=== PATIENT | female | born 1945 | race Caucasian/White ===

== ENCOUNTER → 2017-01-14 | Outpatient (REF) | payer OTHER ==
[~2017-01-14] MED LIST: ATOR40TA PO; BRIM2OPD OU; COMB0.2S OU; DORZ2OPD OU; FOSA70TA PO; LATA5OPD OD; LEVO75TA4 PO; LEVOTAB10 PO; OMEP20CA3 PO; PARO10TA84 PO; VITA400C2 PO; VITA400C29 PO
== END ==
LOC: M LAB REF 15:02
PROVIDERS: ATTEND Internal Medicine
DX: R94.31 Abnormal electrocardiogram [ECG] [EKG] (principal)

== ENCOUNTER → 2017-01-22 | Day surgery (SDC) | payer OTHER ==
[~2017-01-22] VITALS: Ht 152.4 cm; Wt 67.1 kg
[~2017-01-22] MED LIST changes: +ACETAMINOPHEN 325 MG TAB PO PRN; +AcetaZOLAMIDE 500 MG ER CAP PO ONE; +BETAMETHASONE SOLUSPAN 6MG/ML INJ 5ML (J0702) As Ordered ONE; +BSS with VANC/TOB/EPI for EYE CASES IR ONE; +CYCLOPENTOLATE 2% OPHTH SOLN 2ML BTL As Ordered ONE; +CYCLOPENTOLATE 2% OPHTH SOLN 2ML BTL OS ONE; +D5W/0.2% SODIUM CHLORIDE 1,000 ML ONE; +D5W/0.2% SODIUM CHLORIDE 250 ML IV ONE; +KETOROLAC 0.5% OPHTH SOLN OS ONE; +LIDOCAINE 2% W/EPIN INJ 20ML **PRES FREE As Ordered ONE; +LIDOCAINE 4% INJ 5 ML AMP OU ONE; +MIDAZOLAM INJ 2 MG/2 ML VIAL (J2250) As Ordered ONE; +OFLOXACIN 0.3 % (OCUFLOX) OPTH SOL 5ML As Ordered ONE; +OFLOXACIN 0.3 % (OCUFLOX) OPTH SOL 5ML OS ONE; +PHENYLEPHRINE 2.5% OPHTH SOL 2ML As Ordered ONE; +PHENYLEPHRINE 2.5% OPHTH SOL 2ML OS ONE; +POVIDONE-IODINE 5% OPHTH PREP SOL 30ML As Ordered ONE; +PROPARACAINE 0.5% OPHTH SOL 15ML OS PRN; +TOBRADEX OPHTH OINT 3.5 GM As Ordered ONE; +TOBRAMYCIN INJ 80 MG/2 ML VIAL (J3260) As Ordered ONE; +TRIMETHOBENZAMIDE 300 MG CAP PO PRN; +TROPICAMIDE 1% OPHTH SOLN 2ML As Ordered ONE; +TROPICAMIDE 1% OPHTH SOLN 2ML OS ONE; +fentaNYL 100 MCG/2 ML INJECTION (J3010) As Ordered ONE; +mitoMYcin (FOR OPHTHALMIC USE) 0.3MG/1ML SYRINGE IN NaCl (J7999) As Ordered ONE
[2017-01-22 09:10] VITALS: BP 143/79
--- NOTE | 2017-01-22 10:42 | RO ---
DATE OF PROCEDURE: 01/22/2017 PREOPERATIVE DIAGNOSIS: Failed Ex-Press shunt left eye. POSTOPERATIVE DIAGNOSIS: Failed Ex-Press shunt left eye. PROCEDURE: Revision of the Ex-Press shunt with mitomycin C and lysis of the adhesions left eye. SURGEON: Danielle Cuellar MD ANALYTICAL TECH: None. ANESTHESIA: COMPLICATIONS: None. DESCRIPTION OF PROCEDURE: Procedure in detail: The patient was brought to the operating room, laid in supine position. The left eye was prepped and draped in a sterile fashion for ophthalmic surgery, following which a lid speculum was placed. 8-0 Vicryl suture was then placed in the superior limbal area, and the eye was rotated downwards. Subconjunctival injection of 1% lidocaine with 1:100,000 epinephrine was then given in the superior subconjunctival space. A limbal-based conjunctival peritomy was then done. Dissection was carried out all the way to the limbus. There were extensive adhesions noted, which were then lysed with the help of 0.12 forceps and blunt scissors. The previous site of the scleral flap was identified, which was noted to be scarred down. All the fibrovascular tissue was then lysed and hemostasis obtained as necessary. Dissection was carried to identify the previously-placed Ex-Press shunt, which was noted to be patent. After the extensive lysis of the adhesions, the Ex-Press shunt was draped over by the scleral flap, and the conjunctiva was closed using 8-0 Vicryl sutures, and no leaks were noted. Prior to the dissection and lifting of the scleral flap, mitomycin 0.3 mg per mL was placed on the scleral bed, followed by copious irrigation, after 2-1/2 minutes with balanced salt solution (BSS).
== END | disposition home or self-care (01) ==
LOC: M SDC 05:50
PROVIDERS: ATTEND Ophthalmology
DX: T85.398A Other mechanical complication of other ocular prosthetic devices, implants and grafts, initial encounter (principal); E78.5 Hyperlipidemia, unspecified; J45.909 Unspecified asthma, uncomplicated; E03.9 Hypothyroidism, unspecified; F41.9 Anxiety disorder, unspecified; Z79.899 Other long term (current) drug therapy
CPT/HCPCS: 66185; J2250; J3010; J7999

== ENCOUNTER → 2017-04-08 | Outpatient (CLI) | payer OTHER ==
[~2017-04-08] MED LIST changes: -ACETAMINOPHEN 325 MG TAB PO PRN; -ATOR40TA PO; +ATOR40TA75 PO; -AcetaZOLAMIDE 500 MG ER CAP PO ONE; -BETAMETHASONE SOLUSPAN 6MG/ML INJ 5ML (J0702) As Ordered ONE; -BSS with VANC/TOB/EPI for EYE CASES IR ONE; -CYCLOPENTOLATE 2% OPHTH SOLN 2ML BTL As Ordered ONE; -CYCLOPENTOLATE 2% OPHTH SOLN 2ML BTL OS ONE; -D5W/0.2% SODIUM CHLORIDE 1,000 ML ONE; -D5W/0.2% SODIUM CHLORIDE 250 ML IV ONE; -KETOROLAC 0.5% OPHTH SOLN OS ONE; -LIDOCAINE 2% W/EPIN INJ 20ML **PRES FREE As Ordered ONE; -LIDOCAINE 4% INJ 5 ML AMP OU ONE; -MIDAZOLAM INJ 2 MG/2 ML VIAL (J2250) As Ordered ONE; -OFLOXACIN 0.3 % (OCUFLOX) OPTH SOL 5ML As Ordered ONE; -OFLOXACIN 0.3 % (OCUFLOX) OPTH SOL 5ML OS ONE; +PARO10TA3 PO; -PARO10TA84 PO; -PHENYLEPHRINE 2.5% OPHTH SOL 2ML As Ordered ONE; -PHENYLEPHRINE 2.5% OPHTH SOL 2ML OS ONE; -POVIDONE-IODINE 5% OPHTH PREP SOL 30ML As Ordered ONE; -PROPARACAINE 0.5% OPHTH SOL 15ML OS PRN; -TOBRADEX OPHTH OINT 3.5 GM As Ordered ONE; -TOBRAMYCIN INJ 80 MG/2 ML VIAL (J3260) As Ordered ONE; -TRIMETHOBENZAMIDE 300 MG CAP PO PRN; -TROPICAMIDE 1% OPHTH SOLN 2ML As Ordered ONE; -TROPICAMIDE 1% OPHTH SOLN 2ML OS ONE; +VITA-110 PO; -VITA400C2 PO; -VITA400C29 PO; +VITA400C7 PO; -fentaNYL 100 MCG/2 ML INJECTION (J3010) As Ordered ONE; -mitoMYcin (FOR OPHTHALMIC USE) 0.3MG/1ML SYRINGE IN NaCl (J7999) As Ordered ONE
--- NOTE | 2017-04-08 15:49 | REPMRS ---
Patient History The patient states she had a clinical breast exam in 03/2017. Patient is postmenopausal. No known family history of cancer. Benign excisional biopsy of the left breast. Digital Woman Screen Mammo: April 08, 2017 - Exam #: [id number] Bilateral CC and MLO view(s) were taken. Technologist: Windy Neil, Technologist Prior study comparison: March 06, 2016, digital woman screen mammo performed at [facility]. February 18, 2015, digital woman screen mammo performed at [facility] to [facility]. FINDINGS: There are scattered fibroglandular densities. There has been no change in the appearance of the mammogram from the prior studies. There is a mild amount of residual fibroglandular tissue which is fairly symmetric. There is no interval development of dominant mass, architectural distortion, or clustered microcalcification suggestive of malignancy. ASSESSMENT: BI-RADS/ACR category 1 mammogram. Negative. Recommendation Routine screening mammogram in 1 year (for women over age 40). This mammogram was interpreted with the aid of an FDA-approved computer-aided dectection system. Electronically Signed By: Ashutosh Medeiros MD 04/08/17 [id number]
== END ==
LOC: M WHC 14:15
PROVIDERS: ATTEND Nurse Practitioner Family
DX: Z12.31 Encounter for screening mammogram for malignant neoplasm of breast (principal); Z78.0 Asymptomatic menopausal state; Z92.89 Personal history of other medical treatment; Z12.12 Encounter for screening for malignant neoplasm of rectum
CPT/HCPCS: 82270; G0101; G0202

== ENCOUNTER 2017-04-24 07:29 | Outpatient (CLI) | payer OTHER ==
[~2017-04-24] VITALS: Ht 152.4 cm; Wt 66.2 kg
[2017-04-24] MEDS ORDERED: NS 1,000 ML IV ONE (08:15)
[2017-04-24] MEDS ORDERED: PROPOFOL 500 MG/50 ML VIAL As Ordered ONE (08:41)
[2017-04-24] MEDS ORDERED: LIDOCAINE 2% INJ 100 MG/5 ML SDV (FOR ANES.) As Ordered ONE (08:41)
--- NOTE | 2017-04-24 08:55 | ROOR ---
Patient Name: Lindsey Cannon Procedure Date: 04/24/2017 8:37 AM Date of : 1945 Age: 72 Room: [facility] Gender: Female Note Status: Finalized Procedure: Total Colonoscopy to Cecum Indications: Screening for colorectal malignant neoplasm Providers: Hira Doan MD Referring MD: Lainey Jean-Baptiste DO Requesting Provider: Medicines: Monitored Anesthesia Care Complications: No immediate complications. Procedure: Pre-Anesthesia Assessment: - The heart rate, respiratory rate, oxygen saturations, blood pressure, adequacy of pulmonary ventilation, and response to care were monitored throughout the procedure. The Colonoscope was introduced through the anus and advanced to the cecum, identified by appendiceal orifice and ileocecal valve. The colonoscopy was performed without difficulty. The patient tolerated the procedure well. The quality of the bowel preparation was excellent. Findings: The perianal and digital rectal examinations were normal. No other significant abnormalities were identified in a careful examination of the remainder of the colon. The exam was otherwise without abnormality on direct and retroflexion views. Impression: - The examination was otherwise normal on direct and retroflexion views. - No specimens collected. - The exam was otherwise normal to the cecum. Recommendation: - Patient has a contact number available for emergencies. The signs and symptoms of potential delayed complications were discussed with the patient. Return to normal activities tomorrow. Written discharge instructions were provided to the patient. - High fiber diet. - Discharge patient to home. - Continue present medications. - Repeat colonoscopy for symptoms only. - Return to referring physician. - The findings and recommendations were discussed with the patient's family. Hira Doan MD Hira Doan MD 04/24/2017 8:55:16 AM This report has been signed electronically. Number of Addenda: 0 Note Initiated On: 04/24/2017 8:37 AM Estimated Blood Loss: Estimated blood loss: none.
[2017-04-24 09:10] VITALS: BP 165/78
== END 2017-04-24 09:18 | disposition home or self-care (01) ==
LOC: M OPP 07:29
PROVIDERS: ATTEND Internal Medicine Gastroenterology
DX: Z12.11 Encounter for screening for malignant neoplasm of colon (principal); E78.5 Hyperlipidemia, unspecified; E03.9 Hypothyroidism, unspecified; R12 Heartburn; M19.90 Unspecified osteoarthritis, unspecified site; R21 Rash and other nonspecific skin eruption; H40.9 Unspecified glaucoma; F32.9 Major depressive disorder, single episode, unspecified; F41.9 Anxiety disorder, unspecified; Z78.0 Asymptomatic menopausal state; J45.909 Unspecified asthma, uncomplicated; R06.83 Snoring; Z87.09 Personal history of other diseases of the respiratory system; Z79.899 Other long term (current) drug therapy

== ENCOUNTER → 2017-04-29 | Outpatient (CLI) | payer OTHER | LOC: M WUC 10:46 | PROVIDERS: ATTEND Physician Assistant | DX: M79.674 Pain in right toe(s) (principal) ==

== ENCOUNTER → 2018-04-25 | Outpatient (CLI) | payer OTHER | LOC: M WHC 11:03 | DX: Z12.31 Encounter for screening mammogram for malignant neoplasm of breast (principal); Z92.89 Personal history of other medical treatment | CPT/HCPCS: 77067 ==

== ENCOUNTER → 2018-05-19 | Outpatient (REF) | payer OTHER ==
[2018-05-19 19:07] LABS: C REACTIVE PROTEIN QUANTITATIV < 0.30 MG/DL (0.00-0.30)
== END ==
LOC: M LAB REF 17:56
DX: N39.0 Urinary tract infection, site not specified (principal)
CPT/HCPCS: 86140

== ENCOUNTER → 2019-04-28 | Outpatient (CLI) | payer MEDICARE ==
[~2019-04-28] MED LIST changes: +LATA0.0013 OD; -LATA5OPD OD; -OMEP20CA3 PO; +OMEP20CA4 PO
--- NOTE | 2019-04-28 11:25 | REPMRS ---
Patient History The patient states she had a clinical breast exam in 04/2019. Patient is postmenopausal. No known family history of cancer. Benign excisional biopsy of the left breast. No Hormone Replacement Therapy 3D TOMOSYNTHESIS WAS PERFORMED. The [facility] lifetime risk for breast cancer is 2.0%. Digital Woman Screen Mammo: April 28, 2019 - Exam #: [id number] Bilateral CC and MLO view(s) were taken. Technologist: Windy Neil, Technologist Prior study comparison: April 25, 2018, bilateral digital woman screen mammo performed at [facility]. April 08, 2017, digital woman screen mammo performed at [facility]. FINDINGS: There are scattered fibroglandular densities. There has been no change in the appearance of the mammogram from the prior studies. There is a mild amount of residual fibroglandular tissue which is fairly symmetric. There is no interval development of dominant mass, architectural distortion, or clustered microcalcification suggestive of malignancy. Assessment: BI-RADS/ACR category 1 mammogram. Negative Mammogram. Recommendation Routine screening mammogram in 1 year (for women over age 40). This mammogram was interpreted with the aid of an FDA-approved computer-aided dectection system. Electronically Signed By: Ashutosh Medeiros MD 04/28/19 [id number]
--- NOTE | 2019-04-29 11:10 | DEXA ---
AP SPINE L1 - L4 0.852 -2.8 -1.0 LT FEMUR TOTAL 0.832 -1.4 0.3 LT NECK 0.667 -2.7 -0.8 RT FEMUR TOTAL 0.802 -1.6 0.1 RT NECK 0.748 -2.1 -0.2 TOTAL BODY TOTAL OTHER COMMENTS: There is low bone density of the right hip. There is osteoporosis of the spine. There is osteoporosis of the left hip. The decreased density of the spine does not represent a significant change. The increased density of the left hip does represent a significant change. The increased density of the right hip does represent a significant change. The density of the spine has increased 2.4% since the initial exam on 02/14/2001. The spine density has decreased 0.8% since the most recent exam on 03/06/2016. The density of the left hip has increased 4.7% since the initial exam on 02/14/2001. The density of the left hip has increased 4.7% since the most recent exam on 03/06/2016. The density of the right hip has increased 1.4% since the initial exam on 12/24/2003. The density of the right hip has increased 4.7% since the most recent exam on 03/06/2016. FOLLOW-UP: Recommendation for the next bone density exam: 2 years. NIGEL
== END ==
LOC: M WHC 09:49
PROVIDERS: ATTEND Nurse Practitioner Family
DX: Z12.31 Encounter for screening mammogram for malignant neoplasm of breast (principal); M81.0 Age-related osteoporosis without current pathological fracture; Z78.0 Asymptomatic menopausal state; Z86.018 Personal history of other benign neoplasm

== ENCOUNTER → 2020-05-20 | Outpatient (CLI) | payer MEDICARE, OTHER ==
[~2020-05-20] MED LIST changes: +OMEP1CAP73 PO; -OMEP20CA4 PO
--- NOTE | 2020-05-20 10:04 | REPMRS ---
Patient History The patient states she had a clinical breast exam in April 2020.No known family history of cancer. Benign excisional biopsy of the left breast. No Hormone Replacement Therapy Digital Woman Screen Mammo: May 20, 2020 - Exam #: [id number] Bilateral CC and MLO view(s) were taken. Technologist: Trini Vargas, Technologist Prior study comparison: April 28, 2019, bilateral digital woman screen mammo performed at [facility]. April 25, 2018, bilateral digital woman screen mammo performed at [facility]. April 08, 2017, digital woman screen mammo performed at [facility]. FINDINGS: There are scattered fibroglandular densities. The Volpara volumetric breast density category is:B. There has been no change in the appearance of the mammogram from the prior studies. There is a mild amount of scattered fibroglandular density which is fairly symmetric. There is no interval development of dominant mass, architectural distortion, or grouped microcalcification suggestive of malignancy. 3-D tomosynthesis shows no additional findings. Assessment: BI-RADS/ACR category 1 mammogram. Negative Mammogram. Recommendation Routine screening mammogram of both breasts in 1 year (for women over age 40). This patient's Lifetime Breast Cancer Risk is estimated at 1.8 %. This mammogram was interpreted with the aid of an FDA-approved computer-aided dectection system. Electronically Signed By: Sd Shea MD 05/20/20 [id number]
== END ==
LOC: M WHC 08:32
PROVIDERS: ATTEND Nurse Practitioner Family
DX: Z12.31 Encounter for screening mammogram for malignant neoplasm of breast (principal); Z86.018 Personal history of other benign neoplasm
CPT/HCPCS: 77063; 77067; G0463

== ENCOUNTER → 2020-12-16 | Outpatient (CLI) | payer MEDICARE ==
[~2020-12-16] MED LIST changes: +COMB0.2S OS; +PANT40TA29 PO; +SUCR1TA PO; +SYNT75TA PO; +TRUS1SOL OU; +XALA0.007 OU
== END ==
LOC: M LABSMTC 13:18
PROVIDERS: ATTEND Anesthesiology
DX: Z01.812 Encounter for preprocedural laboratory examination (principal)

== ENCOUNTER → 2021-02-10 | Outpatient (CLI) | payer MEDICARE | LOC: M LABSMTC 09:45 | PROVIDERS: ATTEND Anesthesiology | DX: Z01.812 Encounter for preprocedural laboratory examination (principal) ==

== ENCOUNTER 2021-02-15 06:44 | Day surgery (SDC) | payer MEDICARE ==
[~2021-02-15] VITALS: Ht 152.4 cm; Wt 63.5 kg
[~2021-02-15 06:44] MED LIST changes: +NS 1,000 ML IV ONE
[2021-02-15] MEDS ORDERED: SIMETHICONE 40MG/0.6ML DROPS 30ML As Ordered ONE (06:51)
[2021-02-15] MEDS ORDERED: propofoL 200 MG/20 ML VIAL As Ordered ONE (06:56)
[2021-02-15] MEDS ORDERED: LIDOCAINE 2% 100MG/5ML SDV (FOR ANES.) As Ordered ONE (06:56)
--- NOTE | 2021-02-15 07:56 | ROOR ---
Patient Name: Lindsey Cannon Procedure Date: 02/15/2021 7:23 AM Date of : 1945 Age: 75 Room: [facility] Gender: Female Note Status: Finalized Procedure: Colonoscopy Indications: Epigastric abdominal pain Providers: Ashutosh Longoria DO Referring MD: Lainey Jean-Baptiste DO Requesting Provider: Medicines: Propofol per Anesthesia Complications: No immediate complications. Procedure: Pre-Anesthesia Assessment: - Prior to the procedure, a History and Physical was performed, and patient medications and allergies were reviewed. The patient is competent. The risks and benefits of the procedure and the sedation options and risks were discussed with the patient. All questions were answered and informed consent was obtained. Patient identification and proposed procedure were verified by the physician, the nurse, the anesthesiologist and the chief ophthalmic technician in the endoscopy suite. Mental Status Examination: alert and oriented. Airway Examination: normal oropharyngeal airway and neck mobility. Respiratory Examination: clear to auscultation. CV Examination: normal. Prophylactic Antibiotics: The patient does not require prophylactic antibiotics. Prior Anticoagulants: The patient has taken no previous anticoagulant or antiplatelet agents. ASA Grade Assessment: II - A patient with mild systemic disease. After reviewing the risks and benefits, the patient was deemed in satisfactory condition to undergo the procedure. The anesthesia plan was to use monitored anesthesia care (MAC). Immediately prior to administration of medications, the patient was re-assessed for adequacy to receive sedatives. The heart rate, respiratory rate, oxygen saturations, blood pressure, adequacy of pulmonary ventilation, and response to care were monitored throughout the procedure. The physical status of the patient was re-assessed after the procedure. The Colonoscope was introduced through the anus and advanced to the cecum, identified by appendiceal orifice and ileocecal valve. The colonoscopy was performed without difficulty. The patient tolerated the procedure well. Findings: A few small-mouthed diverticula were found in the sigmoid colon. Non-bleeding internal hemorrhoids were found during retroflexion. The hemorrhoids were Grade I (internal hemorrhoids that do not prolapse). Impression: - Diverticulosis in the sigmoid colon. - Non-bleeding internal hemorrhoids. - No specimens collected. Recommendation: - Patient has a contact number available for emergencies. The signs and symptoms of potential delayed complications were discussed with the patient. Return to normal activities tomorrow. Written discharge instructions were provided to the patient. - Repeat colonoscopy in 5-10 years for screening purposes. - Return to my office PRN. Procedure Code(s): --- Professional --- 74061, Colonoscopy, flexible; diagnostic, including collection of specimen(s) by brushing or washing, when performed (separate procedure) Diagnosis Code(s): --- Professional --- K64.0, First degree hemorrhoids R10.13, Epigastric pain K57.30, Diverticulosis of large intestine without perforation or abscess without bleeding CPT copyright 2019 [employer]. All rights reserved. The codes documented in this report are preliminary and upon software build engineer review may be revised to meet current compliance requirements. Ashutosh Longoria DO 02/15/2021 7:56:15 AM Electronically signed by Ashutosh Longoria DO Number of Addenda: 0 Note Initiated On: 02/15/2021 7:23 AM Estimated Blood Loss: Estimated blood loss: none.
[2021-02-15 08:15] VITALS: BP 138/67
== END 2021-02-15 08:23 | disposition home or self-care (01) ==
LOC: M OPP 06:44
PROVIDERS: ATTEND Surgery
DX: R10.13 Epigastric pain (principal); K57.30 Diverticulosis of large intestine without perforation or abscess without bleeding; K64.0 First degree hemorrhoids; E78.5 Hyperlipidemia, unspecified; E03.9 Hypothyroidism, unspecified; M19.90 Unspecified osteoarthritis, unspecified site; H40.9 Unspecified glaucoma; J45.909 Unspecified asthma, uncomplicated; K52.9 Noninfective gastroenteritis and colitis, unspecified; Z79.899 Other long term (current) drug therapy; Z80.41 Family history of malignant neoplasm of ovary; Z80.42 Family history of malignant neoplasm of prostate

== ENCOUNTER → 2021-02-19 | Outpatient (REF) | payer MEDICARE ==
[~2021-02-19] MED LIST changes: -NS 1,000 ML IV ONE
== END ==
LOC: M LAB REF 19:42
PROVIDERS: ATTEND Physician Assistant
DX: N39.0 Urinary tract infection, site not specified (principal)

== ENCOUNTER → 2021-05-24 | Outpatient (CLI) | payer MEDICARE ==
--- NOTE | 2021-05-24 11:06 | REPMRS ---
Patient History The patient states she had a clinical breast exam in April 2021. No known family history of cancer. Benign excisional biopsy of the left breast. No Hormone Replacement Therapy Patient states no breast complaints today. Patient has signed MRS History Sheet. Digital Woman Screen Mammo: May 24, 2021 - Exam #: [id number] Bilateral CC and MLO view(s) were taken. Technologist: Rand Buck Technologist Prior study comparison: May 20, 2020, bilateral digital woman screen mammo performed at [facility]. April 28, 2019, bilateral digital woman screen mammo performed at [facility]. FINDINGS: There are scattered fibroglandular densities. Screening. Digital screening (2D) mammography was performed bilaterally in the CC and MLO projections. Additionally, breast tomosynthesis (3D mammography) was performed bilaterally in the CC and MLO projections. Todays exam was compared to the prior exam/exams. By history, the patient has no complaints of a palpable breast abnormality or other significant breast complaints. The breasts are unchanged in size and shape. There are no donna-soft tissue densities or spiculated masses. There is no internal architectural distortion. Once again, stable benign appearing calcifications are seen.There are no suspicious donna-calcific clusters. Skin thickening or nipple retraction is not present. IMPRESSION: BI-RADS Category 2- Benign Findings. There is no evidence of malignant alteration of the breasts. Followup examination recommended in one year. The Volpara volumetric breast density category is B, there are scattered areas of fibroglandular densities. This mammogram was read with the assistance of [employer],an FDA approved computer aided detection system for mammography. The lifetime Tyrer-Cuzick score is 1.7 % Negative x-ray reports should not delay surgical consultation if a dominant or clinically suspicious mass is present. Not all breast cancers can be identified by mammography. Therefore, we recommend that you continue to perform regular breast self-examination and physical examination and then promptly contact your physician of any concerns or changes. Adenosis and dense breasts may obscure an underlying neoplasm. Assessment: BI-RADS/ACR category 2 mammogram. Benign Findings. Recommendation Routine screening mammogram of both breasts in 1 year. Electronically Signed By: Negro Avila DO 05/24/21 [id number]
== END ==
LOC: M WHC 09:08
PROVIDERS: ATTEND Advanced Practice Midwife
DX: Z12.31 Encounter for screening mammogram for malignant neoplasm of breast (principal)

== ENCOUNTER → 2021-11-30 | Outpatient (REF) | payer MEDICARE ==
[2021-11-30 16:15] LABS: APPEARANCE, URINE CLEAR (CLEAR); BACTERIA, URINE AUTO 1+ (NEGATIVE); BILIRUBIN, URINE AUTO NEGATIVE (NEGATIVE); BLOOD, URINE BLOOD NEGATIVE (NEGATIVE); COLOR, URINE YELLOW (YELLOW); GLUCOSE, URINE (UA) AUTO NEGATIVE (NEGATIVE); KETONE, URINE AUTO NEGATIVE (NEGATIVE); LEUKOCYTE ESTERASE, URINE AUTO 3+ (NEGATIVE); MUCUS, URINE SMALL (NEGATIVE); NITRITE, URINE AUTO NEGATIVE (NEGATIVE); PROTEIN, URINE AUTO NEGATIVE (NEGATIVE); RBC, URINE AUTO 1 /HPF (0-3); SPECIFIC GRAVITY URINE AUTO 1.004 (1.002-1.035); SQUAMOUS EPITHELIAL CELL UR AU 0 /HPF (0-6); WBC, URINE AUTO 32 /HPF (0-3)
== END ==
LOC: M LAB REF 15:13
PROVIDERS: ATTEND Physician Assistant
DX: R30.0 Dysuria (principal)

== ENCOUNTER → 2022-01-29 | Outpatient (CLI) | payer MEDICARE | LOC: M WUC 08:03 | PROVIDERS: ATTEND Physician Assistant | DX: S93.691A Other sprain of right foot, initial encounter (principal); S93.411A Sprain of calcaneofibular ligament of right ankle, initial encounter; W18.30XA Fall on same level, unspecified, initial encounter; Y92.009 Unspecified place in unspecified non-institutional (private) residence as the place of occurrence of the external cause ==

== ENCOUNTER → 2022-05-04 | Outpatient (REF) | payer MEDICARE ==
[~2022-05-04] MED LIST changes: +ALEN70TA87 PO; -FOSA70TA PO
[2022-05-04 17:56] LABS: APPEARANCE, URINE MANUAL CLEAR (CLEAR); COLOR, URINE MANUAL YELLOW (YELLOW)
[2022-05-04 17:57] LABS: BILIRUBIN, URINE MANUAL NEGATIVE (NEGATIVE); BLOOD URINE MANUAL NEGATIVE (NEGATIVE); GLUCOSE, URINE (UA) MANUAL NEGATIVE (NEGATIVE); KETONE, URINE MANUAL NEGATIVE (NEGATIVE); LEUKOCYTE ESTERASE, URINE MAN NEGATIVE (NEGATIVE); NITRITE, URINE MANUAL NEGATIVE (NEGATIVE); PH,URINE MAN 6.5 UNITS (5.0 - 7.0); PROTEIN, URINE MANUAL NEGATIVE (NEGATIVE); UROBILINOGEN, URINE MANUAL 1 MG mg/dl (NORMAL)
== END ==
LOC: M SMT 16:39
PROVIDERS: ATTEND Nurse Practitioner Women's Health
DX: N39.0 Urinary tract infection, site not specified (principal)

== ENCOUNTER → 2022-05-10 | Outpatient (CLI) | payer MEDICARE ==
[~2022-05-10] MED LIST changes: +ECOT81TA5 PO; +ESCI5SOL3 PO; +OMEP10CASR PO
== END ==
LOC: M LABSMTC 10:15
PROVIDERS: ATTEND Anesthesiology
DX: Z01.818 Encounter for other preprocedural examination (principal); Z11.52 Encounter for screening for COVID-19

== ENCOUNTER 2022-05-14 07:45 | Day surgery (SDC) | payer MEDICARE ==
[~2022-05-14] VITALS: Ht 152.4 cm; Wt 64.9 kg
[~2022-05-14 07:45] MED LIST changes: +NS 1,000 ML IV ONE
[2022-05-14] MEDS ORDERED: fentaNYL 100 MCG/2 ML INJECTION As Ordered ONE (08:03)
[2022-05-14] MEDS ORDERED: propofoL 200 MG/20 ML VIAL As Ordered ONE (08:03)
[2022-05-14] MEDS ORDERED: LIDOCAINE 2% 100MG/5ML SDV (FOR ANES.) As Ordered ONE (08:03)
[2022-05-14] MEDS ORDERED: ePHEDrine SULFATE 25 MG/5 ML(5MG/ML) SYRINGE As Ordered ONE (10:15)
[2022-05-14 10:50] VITALS: BP 147/63
== END 2022-05-14 11:04 | disposition home or self-care (01) ==
LOC: M OPP 07:45
PROVIDERS: ATTEND Surgery
DX: K57.30 Diverticulosis of large intestine without perforation or abscess without bleeding (principal); R93.3 Abnormal findings on diagnostic imaging of other parts of digestive tract; K22.89 Other specified disease of esophagus; K29.60 Other gastritis without bleeding; Z98.890 Other specified postprocedural states; Z79.02 Long term (current) use of antithrombotics/antiplatelets; Z79.2 Long term (current) use of antibiotics; Z79.82 Long term (current) use of aspirin; Z79.899 Other long term (current) drug therapy; Z80.41 Family history of malignant neoplasm of ovary; Z80.42 Family history of malignant neoplasm of prostate; K44.9 Diaphragmatic hernia without obstruction or gangrene; F32.9 Major depressive disorder, single episode, unspecified; F41.9 Anxiety disorder, unspecified; E78.00 Pure hypercholesterolemia, unspecified; E03.9 Hypothyroidism, unspecified; J45.909 Unspecified asthma, uncomplicated; H40.9 Unspecified glaucoma
CPT/HCPCS: 43239; 45378; 88305; J3010

== ENCOUNTER → 2022-09-13 | Outpatient (CLI) | payer MEDICARE ==
[~2022-09-13] MED LIST changes: -NS 1,000 ML IV ONE
== END ==
LOC: M WHC 09:06
PROVIDERS: ATTEND Advanced Practice Midwife
DX: Z12.31 Encounter for screening mammogram for malignant neoplasm of breast (principal)

== ENCOUNTER → 2022-12-14 | Outpatient (REF) | payer MEDICARE | LOC: M PLALAB 07:38 | PROVIDERS: ATTEND Advanced Practice Midwife | DX: N39.3 Stress incontinence (female) (male) (principal) ==

== ENCOUNTER → 2023-07-31 | Outpatient (REF) | payer MEDICARE | LOC: M LAB REF 09:39 | PROVIDERS: ATTEND Student in an Organized Health Care Education/Training Program | DX: R30.0 Dysuria (principal) ==

== ENCOUNTER → 2023-08-16 | Outpatient (REF) | payer MEDICARE ==
[2023-08-16 16:49] LABS: APPEARANCE, URINE CLEAR (CLEAR); BACTERIA, URINE AUTO 1+ (NEGATIVE); BILIRUBIN, URINE AUTO NEGATIVE (NEGATIVE); BLOOD, URINE BLOOD NEGATIVE (NEGATIVE); COLOR, URINE YELLOW (YELLOW); GLUCOSE, URINE (UA) AUTO NEGATIVE (NEGATIVE); KETONE, URINE AUTO NEGATIVE (NEGATIVE); LEUKOCYTE ESTERASE, URINE AUTO 1+ (NEGATIVE); NITRITE, URINE AUTO NEGATIVE (NEGATIVE); PROTEIN, URINE AUTO NEGATIVE (NEGATIVE); RBC, URINE AUTO 0 /HPF (0-3); SPECIFIC GRAVITY URINE AUTO 1.014 (1.002-1.035); SQUAMOUS EPITHELIAL CELL UR AU 0 /HPF (0-6); UROBILINOGEN, URINE AUTO 0.2 mg/dL (0.0-2.0); WBC, URINE AUTO 10 /HPF (0-3)
== END ==
LOC: M SMT 15:35
PROVIDERS: ATTEND Nurse Practitioner Family
DX: R10.9 Unspecified abdominal pain (principal)

== ENCOUNTER → 2023-10-10 | Outpatient (CLI) | payer MEDICARE | LOC: M WHC 08:02 | PROVIDERS: ATTEND Advanced Practice Midwife | DX: Z12.31 Encounter for screening mammogram for malignant neoplasm of breast (principal) ==

== ENCOUNTER 2024-03-25 06:11 | Day surgery (SDC) | payer MEDICARE ==
[~2024-03-25] VITALS: Ht 152.4 cm; Wt 66.3 kg
[~2024-03-25 06:11] MED LIST changes: +DORZ2SOL4; +LEXA1TAB2 PO
[2024-03-25] MEDS: LIDOCAINE 3.5 % 1ML OPHTH TOPICAL GEL OU ONE (06:47)
[2024-03-25] MEDS ORDERED: fentaNYL 100 MCG/2 ML INJECTION As Ordered ONE (08:35)
[2024-03-25] MEDS ORDERED: MIDAZOLAM INJ 2MG/2ML VIAL As Ordered ONE (08:35)
[2024-03-25] MEDS: CEFUROXIME 1MG/0.1ML INTRACAMERAL INJ As Ordered ONE (08:47)
[2024-03-25] MEDS: LIDOCAINE 1% SDV 5ML VIAL As Ordered ONE (08:48)
[2024-03-25 08:54] VITALS: BP 155/75; TEMP 97.5; O2SAT 97
== END 2024-03-25 09:08 | disposition home or self-care (01) ==
LOC: M SDC 06:11
PROVIDERS: ATTEND Ophthalmology
DX: H40.1121 Primary open-angle glaucoma, left eye, mild stage (principal); E03.9 Hypothyroidism, unspecified; I25.2 Old myocardial infarction; E78.00 Pure hypercholesterolemia, unspecified; Z79.899 Other long term (current) drug therapy; Z79.82 Long term (current) use of aspirin; Z79.890 Hormone replacement therapy; Z90.710 Acquired absence of both cervix and uterus; Z90.89 Acquired absence of other organs; Z90.49 Acquired absence of other specified parts of digestive tract
CPT/HCPCS: 0671T; C1783; J0697; J2250; J3010

== ENCOUNTER → 2024-06-04 | Outpatient (CLI) | payer MEDICARE | LOC: M EKG 08:42 | PROVIDERS: ATTEND Physician Assistant | DX: I49.5 Sick sinus syndrome (principal); R00.1 Bradycardia, unspecified ==

== ENCOUNTER 2024-08-03 05:58 | Day surgery (SDC) | payer MEDICARE ==
[~2024-08-03] VITALS: Ht 152.4 cm; Wt 65.6 kg
[~2024-08-03 05:58] MED LIST changes: +NITR0.4S14 PO; +SOLI10TA PO
[2024-08-03] MEDS ORDERED: NS 1,000 ML IV SCH ×2 (06:40→08:10)
[2024-08-03] MEDS ORDERED: propofoL 200 MG/20 ML VIAL As Ordered ONE (06:53)
[2024-08-03] MEDS ORDERED: ONDANSETRON 4MG 2ML VIAL As Ordered ONE (06:55)
[2024-08-03] MEDS ORDERED: LIDOCAINE 2% 100MG/5ML SDV (FOR ANES.) As Ordered ONE (06:55)
[2024-08-03] MEDS ORDERED: fentaNYL 100 MCG/2 ML INJECTION As Ordered ONE (06:57)
[2024-08-03] MEDS: ceFAZolin SOD 2 GM in IV 1 EA IV ONE (07:42)
[2024-08-03] MEDS: LIDOCAINE 2% 5ML JELLY UROJET As Ordered ONE (07:53)
[2024-08-03] MEDS ORDERED: fentaNYL 100 MCG/2 ML INJECTION IV PRN (08:10)
[2024-08-03] MEDS: HYDROMORPHONE HCL 0.5 MG/ 0.5 ML SYRINGE IV PRN (08:24)
[2024-08-03] MEDS: ONDANSETRON 4MG 2ML VIAL IV PRN (08:24)
[2024-08-03] MEDS: oxyCODONE 5MG TAB PO PRN (08:30)
[2024-08-03 08:55] VITALS: BP 134/63; TEMP 97.4; O2SAT 99
== END 2024-08-03 09:09 | disposition home or self-care (01) ==
LOC: M SDC 05:58
PROVIDERS: ATTEND Urology
DX: N39.3 Stress incontinence (female) (male) (principal); I25.2 Old myocardial infarction; E78.5 Hyperlipidemia, unspecified; E03.9 Hypothyroidism, unspecified; K21.9 Gastro-esophageal reflux disease without esophagitis; R21 Rash and other nonspecific skin eruption; J45.909 Unspecified asthma, uncomplicated; Z79.899 Other long term (current) drug therapy
CPT/HCPCS: 51715; A4215; A4649; J0690; J1100; J1171; J2405; J3010; L8606

== ENCOUNTER → 2024-10-25 | Outpatient (REF) | payer MEDICARE | LOC: M LAB REF 19:59 | PROVIDERS: ATTEND Physician Assistant | DX: R30.0 Dysuria (principal) ==

== ENCOUNTER → 2024-11-09 | Outpatient (REF) | payer MEDICARE ==
[2024-11-09 15:48] LABS: APPEARANCE, URINE CLEAR (CLEAR); BACTERIA, URINE AUTO 1+ (NEGATIVE); BILIRUBIN, URINE AUTO NEGATIVE (NEGATIVE); BLOOD, URINE BLOOD 1+ (NEGATIVE); COLOR, URINE STRAW (YELLOW); GLUCOSE, URINE (UA) AUTO NEGATIVE (NEGATIVE); KETONE, URINE AUTO NEGATIVE (NEGATIVE); LEUKOCYTE ESTERASE, URINE AUTO 3+ (NEGATIVE); NITRITE, URINE AUTO NEGATIVE (NEGATIVE); PROTEIN, URINE AUTO NEGATIVE (NEGATIVE); RBC, URINE AUTO 1 /HPF (0-3); SPECIFIC GRAVITY URINE AUTO 1.003 (1.002-1.035); SQUAMOUS EPITHELIAL CELL UR AU 0 /HPF (0-6); UROBILINOGEN, URINE AUTO 0.2 mg/dL (0.0-2.0); WBC, URINE AUTO 18 /HPF (0-3)
== END ==
LOC: M LAB REF 15:31
PROVIDERS: ATTEND Physician Assistant Medical
DX: N39.0 Urinary tract infection, site not specified (principal)

== ENCOUNTER → 2024-11-12 | Outpatient (CLI) | payer MEDICARE | LOC: M WHC 08:56 | PROVIDERS: ATTEND Advanced Practice Midwife | DX: Z12.31 Encounter for screening mammogram for malignant neoplasm of breast (principal) ==

== ENCOUNTER → 2025-05-09 | Outpatient (REF) | payer MEDICARE | LOC: M LAB REF 19:52 | PROVIDERS: ATTEND Physician Assistant | DX: R30.0 Dysuria (principal) ==

== ENCOUNTER → 2025-05-11 | Outpatient (REF) | payer MEDICARE ==
[2025-05-11 14:40] LABS: APPEARANCE, URINE CLEAR (CLEAR); BACTERIA, URINE AUTO 1+ (NEGATIVE); BILIRUBIN, URINE AUTO NEGATIVE (NEGATIVE); BLOOD, URINE BLOOD 1+ (NEGATIVE); GLUCOSE, URINE (UA) AUTO NEGATIVE (NEGATIVE); KETONE, URINE AUTO NEGATIVE (NEGATIVE); LEUKOCYTE ESTERASE, URINE AUTO 3+ (NEGATIVE); NITRITE, URINE AUTO NEGATIVE (NEGATIVE); PROTEIN, URINE AUTO NEGATIVE (NEGATIVE); RBC, URINE AUTO 3 /HPF (0-3); SPECIFIC GRAVITY URINE AUTO 1.006 (1.002-1.035); SQUAMOUS EPITHELIAL CELL UR AU 0 /HPF (0-6); UROBILINOGEN, URINE AUTO 0.2 mg/dL (0.0-2.0); WBC, URINE AUTO 78 /HPF (0-3)
== END ==
LOC: M SMT 13:34
PROVIDERS: ATTEND Nurse Practitioner Family
DX: N39.0 Urinary tract infection, site not specified (principal)